=== PATIENT | male | born 1965 | race Asian ===

== ENCOUNTER 2022-12-31 08:11 | Inpatient (IN) | payer MEDICAID ==
[~2022-12-31] VITALS: Ht 165.1 cm; Wt 71.7 kg
[2022-12-31 08:40] VITALS: BP_SYST 112
[2022-12-31] MEDS ORDERED: NACL 0.9% 1,000 ML IV ONE (09:00)
[2022-12-31 09:22] LABS: BASOPHILS % (AUTO) 0.2 % (0.0-2.0); EOSINOPHILS % (AUTO) 0.7 % (0.0-4.0); HEMATOCRIT 35.6 % (36-54); LYMPHOCYTES # (AUTO) 0.6 K/uL (1.0-5.5); LYMPHOCYTES % (AUTO) 20.2 % (20.5-51.5); MEAN CORPUSCULAR HEMOGLOBIN 33 pg (27-31); MEAN CORPUSCULAR HGB CONC 34 % (32-36); MEAN CORPUSCULAR VOLUME 96 fL (79.0-98.0); MONOCYTES # (AUTO) 1.2 K/uL (0.0-1.0); MONOCYTES % (AUTO) 37.1 % (1.7-9.3); NEUTROPHILS # (AUTO) 1.3 K/uL (1.8-7.7); NEUTROPHILS % (AUTO) 41.8 % (40.0-70.0)
[2022-12-31 09:25] LABS: WHITE BLOOD COUNT (AUTO) 3.1 K/uL (4.8-10.8)
[2022-12-31 09:43] LABS: ALBUMIN 2.1 g/dL (3.4-4.8); CALCIUM 7.5 mg/dL (8.4-11.0); CREATININE 1.5 mg/dL (0.55-1.30); TOTAL BILIRUBIN 0.9 mg/dL (0.0-1.0)
[2022-12-31] MEDS ORDERED: KCL 20 mEq in 100 mL (PREMIX) 100 ML IV ONE (10:15)
[2022-12-31 10:37] LABS: PLATELET COUNT (AUTO) 67 K/uL (130-430)
[2022-12-31] MEDS ORDERED: NACL 0.9% 500 ML IV ONE (11:45)
[2022-12-31] MEDS ORDERED: D5/0.45 NS 1,000 ML IV ONE (12:00)
[2022-12-31] MEDS ORDERED: INDO-12 PO (12:14)
[2022-12-31] MEDS ORDERED: ALLO300T2 PO (12:14)
[2022-12-31] MEDS ORDERED: LISI1TAB57 PO (12:14)
[2022-12-31] MEDS ORDERED: AMLO5TAB92 PO (12:14)
[2022-12-31] MEDS ORDERED: HYDROcodone/ACETAMIN 5-325 MG TAB (NORCO/ VICODIN) PO PRN (12:45)
[2022-12-31] MEDS ORDERED: NALOXONE HCL 0.4 MG/ML AMP (NARCAN) IVP PRN ×2 (12:45)
[2022-12-31] MEDS ORDERED: ONDANSETRON HCL 4 MG/2 ML VIAL IVP PRN (12:45)
[2022-12-31] MEDS ORDERED: HYDROcodone/ACETAMIN 10-325 MG TAB PO PRN (12:45)
[2022-12-31] MEDS ORDERED: LORazepam 2 MG/ML VIAL IVP PRN (12:45)
[2022-12-31] MEDS ORDERED: ACETAMINOPHEN 325 MG TABLET PO PRN ×2 (12:45→14:15)
[2022-12-31] MEDS ORDERED: lisinopriL 20 MG TABLET PO ONE (14:15)
[2022-12-31] MEDS ORDERED: amLODIPine BESYLATE 5 MG TABLET PO ONE (14:15)
[2022-12-31] MEDS ORDERED: HYDROCHLOROTHIAZIDE 25 MG TABLET (HCTZ) PO ONE (14:15)
[2022-12-31 17:31] LABS: BILIRUBIN,URINE NEGATIVE (NEGATIVE); BLOOD, URINE NEGATIVE (NEGATIVE); CLARITY/URINE CLEAR (CLEAR); COLOR,URINE YELLOW (YELLOW); GLUCOSE,URINE NEGATIVE (NEGATIVE); KETONES,URINE NEGATIVE (NEGATIVE); LEUKOCYTE ESTERASE ,URINE NEGATIVE (NEGATIVE); NITRITE, URINE NEGATIVE (NEGATIVE); PROTEIN URINE NEGATIVE (NEGATIVE); UROBILINOGEN,URINE 0.2 (0.2-1.0)
[2022-12-31 17:56] VITALS: BP_SYST 113
[2022-12-31 18:22] VITALS: BP_SYST 113
[2022-12-31 20:00] VITALS: BP_SYST 105
[2022-12-31] MEDS: LACTOBACILLUS RHAMNOSUS GG 1 CAP CAPSULE PO SCH (20:51)
[2023-01-01 00:47] VITALS: BP_SYST 118
[2023-01-01 05:19] LABS: HEMATOCRIT 30.3 % (36-54); HEMOGLOBIN 10.3 g/dL (14.0-18.0); MEAN CORPUSCULAR HEMOGLOBIN 33 pg (27-31); MEAN CORPUSCULAR HGB CONC 34 % (32-36); MEAN CORPUSCULAR VOLUME 96 fL (79.0-98.0); PLATELET COUNT (AUTO) 58 K/uL (130-430); RED BLOOD CELL COUNT(AUTO) 3.16 MIL/uL (4.2-6.2); RED CELL DISTRIBUTION WIDTH 17.6 % (9.0-15.0); WHITE BLOOD COUNT (AUTO) 2.2 K/uL (4.8-10.8)
[2023-01-01 05:35] LABS: ALBUMIN 1.7 g/dL (3.4-4.8); CREATININE 1.23 mg/dL (0.55-1.30); TOTAL BILIRUBIN 0.7 mg/dL (0.0-1.0)
[2023-01-01 05:51] LABS: CALCIUM 6.9 mg/dL (8.4-11.0)
[2023-01-01] MEDS ORDERED: CALCIUM GLUCONATE 2 GM in NS 100 ML IV ONE (06:15)
[2023-01-01] MEDS ORDERED: POTASSIUM CHLORIDE 20 MEQ TAB.PRT.SR PO ONE (06:45)
[2023-01-01 08:00] VITALS: BP_SYST 111
[2023-01-01 08:34] LABS: BAND % (MANUAL) 3 % (0-6); BASOPHILS % (MANUAL) 0 % (0-2); EOSINOPHILS % (MANUAL) 2 % (0-7); LYMPHOCYTES % (MANUAL) 56 % (20-46); MONOCYTES % (MANUAL) 18 % (0-11)
[2023-01-01] MEDS: HYDROCHLOROTHIAZIDE 25 MG TABLET (HCTZ) PO SCH (09:02)
[2023-01-01] MEDS: LACTOBACILLUS RHAMNOSUS GG 1 CAP CAPSULE PO SCH ×3 (09:02→22:00)
[2023-01-01] MEDS: ALLOPURINOL 300 MG TABLET (ZYLOPRIM) PO SCH (09:03)
[2023-01-01] MEDS: amLODIPine BESYLATE 5 MG TABLET PO SCH (09:04)
[2023-01-01] MEDS: lisinopriL 20 MG TABLET PO SCH (09:05)
[2023-01-01] MEDS: POTASSIUM CHLORIDE 20 MEQ TAB.PRT.SR PO SCH ×2 (09:42→21:58)
[2023-01-01 12:10] VITALS: BP_SYST 100
[2023-01-01 16:00] VITALS: BP_SYST 118
[2023-01-01 20:00] VITALS: BP_SYST 95
[2023-01-01] MEDS: LOPERAMIDE HCL 2 MG CAPSULE PO SCH (21:59)
[2023-01-02] VITALS: BP_SYST 99
[2023-01-02 04:06] LABS: BASOPHILS % (AUTO) 0.1 % (0.0-2.0); EOSINOPHILS # (AUTO) 0.1 K/uL (0.0-0.4); HEMOGLOBIN 10.2 g/dL (14.0-18.0); LYMPHOCYTES # (AUTO) 0.9 K/uL (1.0-5.5); LYMPHOCYTES % (AUTO) 22.5 % (20.5-51.5); MEAN CORPUSCULAR HEMOGLOBIN 33 pg (27-31); MEAN CORPUSCULAR HGB CONC 34 % (32-36); MEAN CORPUSCULAR VOLUME 96 fL (79.0-98.0); MONOCYTES # (AUTO) 1.3 K/uL (0.0-1.0); MONOCYTES % (AUTO) 32.3 % (1.7-9.3); NEUTROPHILS # (AUTO) 1.7 K/uL (1.8-7.7); PLATELET COUNT (AUTO) 58 K/uL (130-430); RED BLOOD CELL COUNT(AUTO) 3.12 MIL/uL (4.2-6.2); RED CELL DISTRIBUTION WIDTH 18.4 % (9.0-15.0)
[2023-01-02 04:13] LABS: CALCIUM 7.2 mg/dL (8.4-11.0); CREATININE 1.08 mg/dL (0.55-1.30)
[2023-01-02] MEDS: BISMUTH SUBSALICYLATE 240 ML BOTTLE PO PRN ×3 (06:46→23:38)
[2023-01-02 07:07] LABS: NEUTROPHILS % (AUTO) 43.1 % (40.0-70.0)
[2023-01-02 08:00] VITALS: BP_SYST 102
[2023-01-02] MEDS: LOPERAMIDE HCL 2 MG CAPSULE PO SCH ×2 (08:02→21:06)
[2023-01-02] MEDS: POTASSIUM CHLORIDE 20 MEQ TAB.PRT.SR PO SCH ×2 (08:02→21:06)
[2023-01-02] MEDS: HYDROCHLOROTHIAZIDE 25 MG TABLET (HCTZ) PO SCH (08:04)
[2023-01-02] MEDS: amLODIPine BESYLATE 5 MG TABLET PO SCH (08:05)
[2023-01-02] MEDS: lisinopriL 20 MG TABLET PO SCH (08:05)
[2023-01-02] MEDS: ALLOPURINOL 300 MG TABLET (ZYLOPRIM) PO SCH (08:06)
[2023-01-02] MEDS: NACL 0.9% 1,000 ML IV SCH ×2 (11:35→21:07)
[2023-01-02 11:36] VITALS: BP_SYST 92
[2023-01-02 18:11] VITALS: BP_SYST 104
[2023-01-02 20:00] VITALS: BP_SYST 99
[2023-01-02] MEDS: LACTOBACILLUS RHAMNOSUS GG 1 CAP CAPSULE PO SCH (21:06)
[2023-01-03 00:15] VITALS: BP_SYST 103
[2023-01-03 05:55] LABS: BASOPHILS % (AUTO) 0.2 % (0.0-2.0); EOSINOPHILS # (AUTO) 0.1 K/uL (0.0-0.4); EOSINOPHILS % (AUTO) 1.9 % (0.0-4.0); HEMATOCRIT 26.2 % (36-54); HEMOGLOBIN 8.9 g/dL (14.0-18.0); LYMPHOCYTES % (AUTO) 20.4 % (20.5-51.5); MEAN CORPUSCULAR HEMOGLOBIN 33 pg (27-31); MEAN CORPUSCULAR HGB CONC 34 % (32-36); MEAN CORPUSCULAR VOLUME 97 fL (79.0-98.0); MONOCYTES # (AUTO) 1.1 K/uL (0.0-1.0); MONOCYTES % (AUTO) 22.4 % (1.7-9.3); NEUTROPHILS # (AUTO) 2.7 K/uL (1.8-7.7); NEUTROPHILS % (AUTO) 55.1 % (40.0-70.0); PLATELET COUNT (AUTO) 53 K/uL (130-430); RED CELL DISTRIBUTION WIDTH 19.1 % (9.0-15.0); RETICULOCYTE COUNT 5.6 % (0.5-1.5); WHITE BLOOD COUNT (AUTO) 4.8 K/uL (4.8-10.8)
[2023-01-03 06:12] LABS: TOTAL IRON BIND. CAPACITY 121 ug/dL (250-450)
[2023-01-03 06:27] LABS: CREATININE 1.08 mg/dL (0.55-1.30)
[2023-01-03 06:30] LABS: CALCIUM 6.8 mg/dL (8.4-11.0)
[2023-01-03] MEDS: NACL 0.9% 1,000 ML IV SCH (06:57)
[2023-01-03] MEDS: BISMUTH SUBSALICYLATE 240 ML BOTTLE PO PRN ×2 (06:58→13:16)
[2023-01-03] MEDS ORDERED: CALCIUM GLUCONATE 2 GM in NS 100 ML IV ONE (07:00)
[2023-01-03 08:06] VITALS: BP_SYST 99
[2023-01-03] MEDS: ALLOPURINOL 300 MG TABLET (ZYLOPRIM) PO SCH (08:54)
[2023-01-03] MEDS: LOPERAMIDE HCL 2 MG CAPSULE PO SCH (08:55)
[2023-01-03] MEDS: POTASSIUM CHLORIDE 20 MEQ TAB.PRT.SR PO SCH (08:55)
[2023-01-03] MEDS: LACTOBACILLUS RHAMNOSUS GG 1 CAP CAPSULE PO SCH (08:56)
[2023-01-03] MEDS: amLODIPine BESYLATE 5 MG TABLET PO SCH (09:00)
[2023-01-03] MEDS: lisinopriL 20 MG TABLET PO SCH (09:00)
[2023-01-03] MEDS ORDERED: IMO2 PO (10:05)
[2023-01-03] MEDS ORDERED: LACT1CAP57 PO (10:05)
[2023-01-03 12:01] VITALS: BP_SYST 93
[2023-01-03 12:52] VITALS: BP_SYST 116
[2023-01-04 19:06] LABS: FOLATE (FOLIC ACID) 9.1 ng/mL (>3.0)
== END 2023-01-03 15:12 | disposition home or self-care (01) | DRG 469 ==
LOC: SED 08:11 → SMU 11:58
PROVIDERS: ADMIT Preventive Medicine Preventive Medicine/Occupational Environmental Medicine; ATTEND Preventive Medicine Preventive Medicine/Occupational Environmental Medicine
DX: N17.9 Acute kidney failure, unspecified (principal); D61.810 Antineoplastic chemotherapy induced pancytopenia; E43 Unspecified severe protein-calorie malnutrition; C18.9 Malignant neoplasm of colon, unspecified; K52.1 Toxic gastroenteritis and colitis; E83.51 Hypocalcemia; E87.1 Hypo-osmolality and hyponatremia; E86.0 Dehydration; D64.9 Anemia, unspecified; E87.6 Hypokalemia; T45.1X5A Adverse effect of antineoplastic and immunosuppressive drugs, initial encounter; I10 Essential (primary) hypertension; M10.9 Gout, unspecified; X58.XXXA Exposure to other specified factors, initial encounter; R73.9 Hyperglycemia, unspecified; Z68.26 Body mass index [BMI] 26.0-26.9, adult
CPT/HCPCS: 36415; 71045; 76376; 80048; 80053; 81003; 82272; 82607; 82728; 82746; 83540; 83550; 83605; 83735; 84100; 85007; 85025; 85027; 85044; 87040; 87045-TC; 87046; 87177; 87230-TC; 93005; 99285; J0610; J3480